=== PATIENT | male | born 1960 | race Caucasian/White ===

== ENCOUNTER 2016-09-25 16:23 | Emergency (ER) | payer OTHER ==
[2016-09-25 16:38] VITALS: BP 178/99; PULSE 60; RESP 16; TEMP 98.6; O2SAT 95
[2016-09-25] MEDS ORDERED: IBUPROFEN 200 MG TAB PO ONE (16:53)
[2016-09-25] MEDS ORDERED: IBUPROFEN 600 MG TAB PO ONE (17:11)
--- NOTE | 2016-09-25 17:14 | UCPHY ---
H & P Patient Type: Established Chief Complaint Nursing Narrative: Pt. states while walking barefoot left middle toe hit furniture. Pain and swelling Time Seen by Provider: 09/25/16 16:52 HPI/ROS: CHIEF COMPLAINT: Toe pain HISTORY OF PRESENT ILLNESS: The patient is a 56-year-old man who stubbed his left 3rd toe on a chair yesterday. It has been painful and bruised since. Minimal swelling. He tried kishor taping but that made it hurt more. He is able to ambulate. REVIEW OF SYSTEMS: Constitutional: denies: chills, fever, recent illness, recent injury EENTM: denies: blurred vision, double vision, nose congestion Respiratory: denies: cough, shortness of breath Cardiac: denies: chest pain, irregular heart rate, lightheadedness, palpitations Gastrointestinal/Abdominal: denies: abdominal pain, diarrhea, nausea, vomiting, blood streaked stools Genitourinary: denies: dysuria, frequency, hematuria, pain Musculoskeletal: See HPI Skin: denies: lesions, rash, jaundice, bruising Neurological: denies: headache, numbness, paresthesia, tingling, dizziness, weakness Hematologic/Lymphatic: denies: blood clots, easy bleeding, easy bruising Immunologic/allergic: denies: HIV/AIDS, transplant EXAM: GENERAL: Well-appearing, well-nourished and in no acute distress. HEAD: Atraumatic, normocephalic. EYES: Pupils equal round and reactive to light, extraocular movements intact, sclera anicteric, conjunctiva are normal. ENT: TMs normal, nares patent, oropharynx clear without exudates. Moist mucous membranes. NECK: Normal range of motion, supple without lymphadenopathy or JVD. LUNGS: Breath sounds clear to auscultation bilaterally and equal. No wheezes rales or rhonchi. HEART: Regular rate and rhythm without murmurs, rubs or gallops. ABDOMEN: Soft, nontender, normoactive bowel sounds. No guarding, no rebound. No masses appreciated. BACK: No CVA tenderness, no spinal tenderness, step-offs or deformities EXTREMITIES: Bruising to distal aspect of left 3rd toe. No subungual hematoma , no laceration or avulsion, minimal swelling. NEUROLOGICAL: Cranial nerves II through XII grossly intact. Normal speech, normal gait. 5/5 strength, normal movement in all extremities, normal sensation PSYCH: Normal mood, normal affect. SKIN: Warm, dry, normal turgor, no visible rashes or lesions. Source: Patient - Medical/Surgical History Hx Asthma: No Hx Chronic Respiratory Disease: No Hx Diabetes: No Hx Cardiac Disease: No Hx Renal Disease: No Hx Cirrhosis: No Hx Alcoholism: No Hx HIV/AIDS: No Hx Splenectomy or Spleen Trauma: No Other PMH: Shoulder surgery, camila's deformity bilat feet. Insomnia - Family History Significant Family History: No pertinent family hx - Social History Smoking Status: Never smoked Alcohol Use: None Drug Use: None Constitutional: Initial Vital Signs Temperature (C) 37.0 C 09/25/16 16:32 Heart Rate 60 09/25/16 16:32 Respiratory Rate 16 09/25/16 16:32 Blood Pressure 178/99 H 09/25/16 16:32 O2 Sat (%) 95 09/25/16 16:32 O2 Delivery Mode Room Air Allergies/Adverse Reactions: oxycodone HCl [From Percocet] Allergy (Verified 05/13/15 07:49) codeine [Codeine] Adverse Reaction (Verified 09/25/16 16:30) Rash Home Medications: Medication Instructions Recorded Albuterol Hfa Anes Only [Proair 2 puffs IH Q4 PRN #1 mdi 05/13/13 Hfa Anes Only] Hydrocodone Bit/Acetaminophen 05/13/13 Hydrocodone/APAP 5/325 [[place] 05/13/15 5/325 (*)] Zolpidem Tartrate [Ambien 5MG (RX)] 05/13/15 Medical Decision Making - Diagnostics Imaging: Imaging Impressions Toe X-Ray 09/25/16 16:42 Impression: No acute fracture. Findings discussed with Emergency Department physician, ROSEANNE FERNANDEZ at 17:24. X-ray: Toe x-ray was obtained. I viewed the images myself on the PACS system. My interpretation of the images is: Negative for fractures. The radiologist interpretation is pending. ED Course/Re-evaluation: Patient has a bruise toe. It does not appear fractured. He has a boot at home that helps protected. He declines further treatment today. He is happy with this and eager to leave. Differential Diagnosis: Partial list of the Differential diagnosis considered include but were not limited to; contusion, subungual hematoma, fracture and although unlikely based on the history and physical exam, I also considered dislocation, infection. I discussed these differential diagnoses and the plan with the patient as well as the usual and expected course. The patient understands that the diagnosis is provisional and that in medicine we are not always correct and that further workup is often warranted. Usual and customary warnings were given. All of the patient's questions were answered. The patient was instructed to return to the emergency department should the symptoms at all worsen or return, otherwise to followup with the physician as we discussed. - Data Points Medications Given: Discontinued Medications Ibuprofen (Motrin) 600 mg PO EDNOW ONE Stop: 09/25/16 16:54 Last Admin: 09/25/16 17:09 Dose: 600 mg Departure - Departure Disposition: Home, Routine, Self-Care Clinical Impression: Contusion, toe Qualifiers: Encounter type: initial encounter Toe: lesser toe Damage to nail status: without damage Laterality: left Qualified Code(s): S90.122A - Contusion of left lesser toe(s) without damage to nail, initial encounter Condition: Fair Instructions: Foot Contusion (ED) Referrals: NONE *PRIMARY CARE P,. [Primary Care Provider] - As per Instructions Perry Valentin DPM [Doctor of Podiatric Medicine] - As per Instructions - PQRS PQRS Measurement: Not applicable
== END 2016-09-25 17:30 | disposition home or self-care (01) ==
LOC: CED 16:23
DX: S90.122A Contusion of left lesser toe(s) without damage to nail, initial encounter (principal); W22.8XXA Striking against or struck by other objects, initial encounter
CPT/HCPCS: 73660-PO; G0463-PO